=== PATIENT | male | born 1945 | race Caucasian/White ===

== ENCOUNTER 2022-08-30 12:14 | Inpatient (IN) | payer MEDICARE, OTHER ==
[2022-08-30] MEDS ORDERED: Acetaminophen 325 MG TAB PO PRN (13:33)
[2022-08-30] MEDS ORDERED: hydrALAZINE 20 MG/ML VIAL SLOW IVP PRN ×2 (13:33→22:45)
[2022-08-30] MEDS ORDERED: Ondansetron PF 4 MG/2 ML Vial IVP PRN (13:33)
[2022-08-30] MEDS ORDERED: Enoxaparin Sodium 40 MG/0.4 ML SYRINGE SC SCH (13:45)
[2022-08-30] MEDS ORDERED: Dextrose 50% Abboject 50 ML SYRINGE SLOW IVP PRN (13:46)
[2022-08-30] MEDS ORDERED: Dextrose 5% in Water 1,000 ML IV PRN (13:46)
[2022-08-30] MEDS ORDERED: HumaLOG 300 UNITS/3 ML VIAL SC PRN (13:46)
[2022-08-30] MEDS: Sodium Chloride 0.9% 1,000 ML IV SCH ×2 (14:03→20:47)
[2022-08-30] MEDS ORDERED: hydrALAZINE 20 MG/ML VIAL ONE (15:47)
[2022-08-30] MEDS ORDERED: OLANZapine 10 MG VIAL IM SCH (20:00)
[2022-08-30] MEDS: Rosuvastatin 20 MG TAB PO SCH (20:42)
[2022-08-30] MEDS: Morphine 4 MG/ML VIAL SLOW IVP PRN (20:47)
[2022-08-30] MEDS ORDERED: Labetalol HCl 100 MG/20 ML VIAL SLOW IVP SCH (23:00)
[2022-08-31] MEDS ORDERED: OLANZapine 10 MG VIAL IM SCH (01:30)
[2022-08-31] MEDS ORDERED: Sterile Water 10 ML VIAL FS PRN (01:45)
[2022-08-31] MEDS ORDERED: hydrALAZINE 20 MG/ML VIAL SLOW IVP PRN (01:49)
[2022-08-31 05:48] LABS: Hemoglobin A1c 8.9 % (4.0-6.0)
[2022-08-31 08:17] LABS: #Eosinphils 0.2 thou/uL (0.0-0.7); #Lymphocytes 3.9 thou/uL (1.20-3.40); #Monocytes 0.5 thou/uL (0.11-0.59); #Neutrophils 4.4 thou/uL (1.40-6.50); %Basophils 0.5 % (0.0-1.0); %Eosinophils 1.7 % (0.0-10.0); %Lymphocytes 43.4 % (21.0-51.0); %Neutrophils 48.4 % (42.0-75.0); Hemoglobin 13.1 g/dL (14.0-18.0); Mean Corpuscular HGB CONC 32.2 g/dL (32.0-36.0); Mean Corpuscular Volume 99.5 fl (78.0-98.0); Mean Platelet Volume 7.5 fL (7.4-10.4); Platelet Count 179 10x3/uL (130-400); RBC Distribution Width 11.9 % (11.5-14.5); Red Blood Cell (RBC) Count 4.08 mill/uL (4.70-6.10); White Blood Cell (WBC) Count 9.1 10x3/uL (4.8-10.8)
[2022-08-31 08:41] LABS: ALT (SGPT) 13 U/L (8-55); AST (SGOT) 15 U/L (5-34); Alkaline Phosphatase 78 U/L (40-110); Anion Gap 15 mmol/L (10-20); BUN (Urea Nitrogen) 12 mg/dL (8.4-25.7); Bilirubin, Total 0.6 mg/dL (0.2-1.2); Calc. Creatinine Clearance 110 mL/min (70-130); Calcium 9.7 mg/dL (7.8-10.44); Carbon Dioxide 25 mmol/L (23-31); Chloride 104 mmol/L (98-107); Estimated GFR 89; Globulin 3.1 g/dL (2.4-3.5); Glucose 195 mg/dL (83-110); Magnesium 1.4 mg/dL (1.6-2.6); Potassium 3.8 mmol/L (3.5-5.1); Protein, Total 7.1 g/dL (5.8-8.1); Sodium 140 mmol/L (136-145)
[2022-08-31] MEDS: Enoxaparin Sodium 40 MG/0.4 ML SYRINGE SC SCH (09:55)
[2022-08-31] MEDS: Sodium Chloride 0.9% 1,000 ML IV SCH ×2 (09:56→20:40)
[2022-08-31] MEDS ORDERED: OLANZapine 2.5 MG TAB PO SCH (19:15)
[2022-08-31] MEDS: Labetalol HCl 100 MG/20 ML VIAL SLOW IVP PRN (20:38)
[2022-08-31] MEDS: Rosuvastatin 20 MG TAB PO SCH (20:40)
[2022-08-31] MEDS: risperiDONE 0.25 MG TAB PO SCH (20:40)
[2022-09-01] MEDS: Morphine 4 MG/ML VIAL SLOW IVP PRN ×3 (00:49→21:33)
[2022-09-01] MEDS ORDERED: OLANZapine 2.5 MG TAB PO SCH (01:30)
[2022-09-01] MEDS: Labetalol HCl 100 MG/20 ML VIAL SLOW IVP PRN ×2 (03:50→12:38)
[2022-09-01 05:56] LABS: #Eosinphils 0.2 thou/uL (0.0-0.7); #Lymphocytes 4.3 thou/uL (1.20-3.40); #Monocytes 0.6 thou/uL (0.11-0.59); %Basophils 0.5 % (0.0-1.0); %Eosinophils 1.9 % (0.0-10.0); %Lymphocytes 42.4 % (21.0-51.0); %Monocytes 5.8 % (0.0-10.0); %Neutrophils 49.5 % (42.0-75.0); Hemoglobin 13.1 g/dL (14.0-18.0); Mean Corpuscular HGB CONC 32.5 g/dL (32.0-36.0); Mean Corpuscular Hemoglobin 32.2 pg (27.0-31.0); Mean Corpuscular Volume 98.9 fl (78.0-98.0); Mean Platelet Volume 7.8 fL (7.4-10.4); Platelet Count 183 10x3/uL (130-400); RBC Distribution Width 11.9 % (11.5-14.5); Red Blood Cell (RBC) Count 4.08 mill/uL (4.70-6.10); White Blood Cell (WBC) Count 10.2 10x3/uL (4.8-10.8)
[2022-09-01] MEDS: Sodium Chloride 0.9% 1,000 ML IV SCH ×2 (05:58→13:07)
[2022-09-01] MEDS: HumaLOG 300 UNITS/3 ML VIAL SC PRN ×2 (05:58→13:05)
[2022-09-01 06:16] LABS: Anion Gap 14 mmol/L (10-20); BUN (Urea Nitrogen) 14 mg/dL (8.4-25.7); Calc. Creatinine Clearance 113 mL/min (70-130); Calcium 9.4 mg/dL (7.8-10.44); Carbon Dioxide 24 mmol/L (23-31); Chloride 106 mmol/L (98-107); Estimated GFR 90; Glucose 189 mg/dL (83-110); Potassium 4.1 mmol/L (3.5-5.1); Sodium 140 mmol/L (136-145)
[2022-09-01 06:17] LABS: Magnesium 1.4 mg/dL (1.6-2.6)
[2022-09-01] MEDS ORDERED: Magnesium 2 GM/50 ML(in water) 2 GM in Premix Bag 1 BAG IVPB SCH (08:45)
[2022-09-01] MEDS ORDERED: Losartan 25 MG TAB PO SCH ×2 (09:00)
[2022-09-01] MEDS: Clopidogrel Bisulfate 75 MG TAB PO SCH (12:11)
[2022-09-01] MEDS: Venlafaxine HCl XR 150 MG CAP PO SCH (12:11)
[2022-09-01] MEDS: Enoxaparin Sodium 40 MG/0.4 ML SYRINGE SC SCH (12:11)
[2022-09-01] MEDS: risperiDONE 0.25 MG TAB PO SCH (21:31)
[2022-09-01] MEDS: Rosuvastatin 20 MG TAB PO SCH (21:31)
[2022-09-01 23:00] LABS: Bacteria/HPF None Seen HPF (None Seen); Bilirubin Negative (Negative); Blood, Urine Negative (Negative); CAUTI Indications for Culture Alt mental st,lethar; Clarity Clear (Clear); Glucose, Urine (Dipstick) 30 mg/dL (Negative); Ketone, Urine Negative (Negative); Leukocyte Negative Leu/uL (Negative); Nitrite Negative (Negative); Protein, Urine (Dipstick) 50 mg/dL (Neg-Trace); RBC/HPF 0-3 HPF (0-3); Specific Gravity, Urine 1.014 (1.002-1.036); Squamous Epithelial None Seen HPF (0-3); Urobilinogen Normal mg/dL (Less than 2); WBC/HPF 0-3 HPF (0-3); pH, Urine 5.5 (5.0-9.0)
[2022-09-01 23:02] LABS: Urine Culture Reflex No No
[2022-09-02 01:29] LABS: #Basophils 0.1 thou/uL (0.0-0.2); #Eosinphils 0.3 thou/uL (0.0-0.7); #Lymphocytes 4.3 thou/uL (1.20-3.40); #Monocytes 0.6 thou/uL (0.11-0.59); #Neutrophils 4.7 thou/uL (1.40-6.50); %Basophils 0.7 % (0.0-1.0); %Eosinophils 2.9 % (0.0-10.0); %Lymphocytes 43.3 % (21.0-51.0); %Monocytes 5.8 % (0.0-10.0); %Neutrophils 47.2 % (42.0-75.0); Hemoglobin 13.2 g/dL (14.0-18.0); Mean Corpuscular HGB CONC 32.2 g/dL (32.0-36.0); Mean Corpuscular Hemoglobin 32.3 pg (27.0-31.0); Mean Platelet Volume 7.4 fL (7.4-10.4); Platelet Count 185 10x3/uL (130-400); RBC Distribution Width 11.9 % (11.5-14.5); Red Blood Cell (RBC) Count 4.08 mill/uL (4.70-6.10); White Blood Cell (WBC) Count 9.9 10x3/uL (4.8-10.8)
[2022-09-02 01:55] LABS: ALT (SGPT) 14 U/L (8-55); AST (SGOT) 13 U/L (5-34); Albumin 3.9 g/dL (3.4-4.8); Alkaline Phosphatase 77 U/L (40-110); Anion Gap 15 mmol/L (10-20); BUN (Urea Nitrogen) 16 mg/dL (8.4-25.7); Bilirubin, Total 0.5 mg/dL (0.2-1.2); Calc. Creatinine Clearance 121 mL/min (70-130); Calcium 8.9 mg/dL (7.8-10.44); Carbon Dioxide 24 mmol/L (23-31); Chloride 105 mmol/L (98-107); Estimated GFR 92; Globulin 2.7 g/dL (2.4-3.5); Glucose 158 mg/dL (83-110); Potassium 4.4 mmol/L (3.5-5.1); Protein, Total 6.6 g/dL (5.8-8.1); Sodium 140 mmol/L (136-145)
[2022-09-02] MEDS: Sodium Chloride 0.9% 1,000 ML IV SCH ×2 (02:00→09:14)
[2022-09-02 03:25] LABS: Actual Bicarbonate (HCO3a) 26.1 mEq/L (22-28); Base Excess (BEa) -2.7 mEq/L (-2.0 to +3.0); Calcium, Ionized (arterial) 1.22 mmol/L (1.12-1.30); Carboxyhemoglobin (COHb) 1.4 gm% (0.0-3.0); Hemoglobin (Hb) 13.1 g/dL (14.0-18.0); O2 Tension (PaO2), arterial 87.3 mmHg (> 70.0); Potassium - ABG Lab 4.27 mmol/L (3.70-5.30); pH, Arterial 7.22 (7.35-7.45)
[2022-09-02 03:30] LABS: CO2 Tension 64.9 mmHg (35.0-45.0)
[2022-09-02 03:31] LABS: Puncture Site RRA
[2022-09-02 03:32] LABS: ALV-art Gradient 59.735 mmHg (0-20)
[2022-09-02] MEDS ORDERED: Sodium Chloride 0.9% 1,000 ML IV SCH (05:34)
[2022-09-02] MEDS: HumaLOG 300 UNITS/3 ML VIAL SC PRN (05:46)
[2022-09-02] MEDS ORDERED: Metoprolol Tartrate 25 MG TAB PO SCH (09:00)
[2022-09-02] MEDS: Famotidine/PF 20 mg/2ml Vial SLOW IVP SCH ×2 (09:14→21:30)
[2022-09-02] MEDS: Enoxaparin Sodium 40 MG/0.4 ML SYRINGE SC SCH (09:15)
[2022-09-02] MEDS: Venlafaxine HCl XR 150 MG CAP PO SCH (10:31)
[2022-09-02] MEDS: Clopidogrel Bisulfate 75 MG TAB PO SCH (10:31)
[2022-09-02 10:58] LABS: Syphilis Antibody Nonreactive (Nonreactive); Syphilis Antibody Index 0.06 S/CO (<1.00 Non-Reactive)
[2022-09-02] MEDS ORDERED: Metoprolol Tartrate 5 MG/5 ML VIAL IVP PRN (11:22)
[2022-09-02] MEDS ORDERED: Aspirin 300 MG Suppository PR SCH (15:00)
[2022-09-02] MEDS: Mometasone 100 MCG/Formoterol 5 MCG 120 PUFF INHALER INH SCH (18:12)
[2022-09-02] MEDS ORDERED: Lorazepam 2 MG/ML VIAL SLOW IVP SCH (20:45)
[2022-09-02] MEDS ORDERED: risperiDONE 0.25 MG TAB PO SCH (21:00)
[2022-09-02] MEDS: risperiDONE 0.25 MG TAB PO SCH (21:30)
[2022-09-02] MEDS: Labetalol HCl 100 MG/20 ML VIAL SLOW IVP PRN (22:45)
[2022-09-03] MEDS: Sodium Chloride 0.9% 1,000 ML IV SCH ×3 (00:36→23:30)
[2022-09-03 04:19] LABS: Anion Gap 16 mmol/L (10-20); BUN (Urea Nitrogen) 19 mg/dL (8.4-25.7); Calc. Creatinine Clearance 115 mL/min (70-130); Carbon Dioxide 22 mmol/L (23-31); Chloride 106 mmol/L (98-107); Estimated GFR 90; Glucose 137 mg/dL (83-110); Potassium 3.6 mmol/L (3.5-5.1); Sodium 140 mmol/L (136-145)
[2022-09-03] MEDS: Mometasone 100 MCG/Formoterol 5 MCG 120 PUFF INHALER INH SCH ×2 (08:36→18:33)
[2022-09-03] MEDS: Enoxaparin Sodium 40 MG/0.4 ML SYRINGE SC SCH (08:44)
[2022-09-03] MEDS: Metoprolol Tartrate 5 MG/5 ML VIAL IVP SCH ×3 (08:44→20:03)
[2022-09-03] MEDS: Famotidine/PF 20 mg/2ml Vial SLOW IVP SCH ×2 (08:44→20:05)
[2022-09-03] MEDS: Aspirin 300 MG Suppository PR SCH (08:44)
[2022-09-03] MEDS: Venlafaxine HCl XR 150 MG CAP PO SCH (08:45)
[2022-09-03] MEDS ORDERED: cloNIDine 0.1mg/24 Hour PATCH TD SCH (09:00)
[2022-09-03] MEDS: Labetalol HCl 100 MG/20 ML VIAL SLOW IVP PRN (09:38)
[2022-09-03 12:56] VITALS: BMI 28.0
[2022-09-03] MEDS: HumaLOG 300 UNITS/3 ML VIAL SC PRN ×2 (13:37→17:45)
[2022-09-03] MEDS: Haloperidol Lactate 5 MG/ML VIAL SLOW IVP PRN ×2 (13:37→23:38)
[2022-09-03] MEDS: risperiDONE 0.25 MG TAB PO SCH (20:06)
[2022-09-04] MEDS ORDERED: Morphine 4 MG/ML VIAL SLOW IVP SCH (00:45)
[2022-09-04] MEDS: Metoprolol Tartrate 5 MG/5 ML VIAL IVP SCH ×4 (02:15→18:46)
[2022-09-04 06:26] LABS: Anion Gap 14 mmol/L (10-20); BUN (Urea Nitrogen) 23 mg/dL (8.4-25.7); Calc. Creatinine Clearance 119 mL/min (70-130); Carbon Dioxide 22 mmol/L (23-31); Chloride 109 mmol/L (98-107); Estimated GFR 92; Glucose 157 mg/dL (83-110); Potassium 4.1 mmol/L (3.5-5.1); Sodium 141 mmol/L (136-145)
[2022-09-04] MEDS: Venlafaxine HCl XR 150 MG CAP PO SCH (09:49)
[2022-09-04] MEDS: Enoxaparin Sodium 40 MG/0.4 ML SYRINGE SC SCH (09:52)
[2022-09-04] MEDS: Famotidine/PF 20 mg/2ml Vial SLOW IVP SCH (09:53)
[2022-09-04] MEDS: Aspirin 300 MG Suppository PR SCH (09:53)
[2022-09-04] MEDS: Mometasone 100 MCG/Formoterol 5 MCG 120 PUFF INHALER INH SCH ×2 (10:15→19:24)
[2022-09-04] MEDS: Sodium Chloride 0.9% 1,000 ML IV SCH (13:08)
[2022-09-04 16:15] VITALS: BP 188/88
[2022-09-04] MEDS: Haloperidol Lactate 5 MG/ML VIAL SLOW IVP PRN (16:30)
[2022-09-04] MEDS: Ipratropium Bromide 2.5 ml Neb NEB SCH (19:22)
[2022-09-04] MEDS: risperiDONE 0.25 MG TAB PO SCH (20:35)
[2022-09-04] MEDS ORDERED: Morphine 4 MG/ML VIAL SLOW IVP PRN (21:36)
[2022-09-05] MEDS: Metoprolol Tartrate 5 MG/5 ML VIAL IVP SCH ×3 (01:09→13:05)
[2022-09-05] MEDS: Sodium Chloride 0.9% 1,000 ML IV SCH ×2 (02:07→17:51)
[2022-09-05] MEDS: Ipratropium Bromide 2.5 ml Neb NEB SCH ×3 (02:38→14:02)
[2022-09-05] MEDS: Morphine 4 MG/ML VIAL SLOW IVP PRN ×3 (03:48→13:05)
[2022-09-05] MEDS: Mometasone 100 MCG/Formoterol 5 MCG 120 PUFF INHALER INH SCH (07:34)
[2022-09-05] MEDS: Aspirin 300 MG Suppository PR SCH (08:57)
[2022-09-05] MEDS: Enoxaparin Sodium 40 MG/0.4 ML SYRINGE SC SCH (08:57)
[2022-09-05] MEDS ORDERED: Venlafaxine HCl XR 150 MG CAP PO SCH (09:00)
[2022-09-05] MEDS: Venlafaxine HCl XR 150 MG CAP PO SCH (09:01)
[2022-09-05] MEDS ORDERED: Morphine PF 10 MG/10 ML VIAL NEB PRN (13:47)
[2022-09-05] MEDS ORDERED: MORPHINE 5 MG/10 ML PF VIAL NEB PRN (14:30)
[2022-09-05 16:27] VITALS: TEMP 97.3
== END 2022-09-05 18:34 | disposition hospice, inpatient (51) | DRG 884 ==
LOC: NEURO 12:33 → OBSVTOIN 08-31 17:29 → CCU 09-02 04:31 → IMCU/EMU 09-03 18:07
PROVIDERS: ADMIT Internal Medicine; ATTEND Internal Medicine
PROC: 5A09357 Assistance with Respiratory Ventilation, Less than 24 Consecutive Hours, Continuous Positive Airway Pressure (ICD-10-PCS; principal; 2022-09-02)
DX: F03.911 Unspecified dementia, unspecified severity, with agitation (principal); G93.41 Metabolic encephalopathy; J96.02 Acute respiratory failure with hypercapnia; F05 Delirium due to known physiological condition; N17.9 Acute kidney failure, unspecified; Z66 Do not resuscitate; Z20.822 Contact with and (suspected) exposure to COVID-19; Z51.5 Encounter for palliative care; T40.605A Adverse effect of unspecified narcotics, initial encounter; E78.5 Hyperlipidemia, unspecified; F17.290 Nicotine dependence, other tobacco product, uncomplicated; I65.22 Occlusion and stenosis of left carotid artery; F40.240 Claustrophobia; E66.9 Obesity, unspecified; Z68.28 Body mass index [BMI] 28.0-28.9, adult; Z88.0 Allergy status to penicillin; Z90.49 Acquired absence of other specified parts of digestive tract; Z79.899 Other long term (current) drug therapy
CPT/HCPCS: 36415; 36416; 36600; 70450; 70551; 74230; 80048; 80053; 80061; 81001; 82140; 82607; 82805; 83036; 83735; 83880; 85025; 86780; 87804; 93005; 93010; 93306; 94640; 94660; 95712; 95816; 95819; 95957; 96372; 96374; 96375; J0360; J1630; J1650; J1815; J2060; J2270; J2274; J3475; J3490; J7050; S0028; U0003; U0005